=== PATIENT | male | born 1985 | race Caucasian/White ===

== ENCOUNTER 2018-05-13 18:07 | Emergency (ER) | payer BC ==
[2018-05-13] MEDS ORDERED: Ketorolac 60 MG/2 ML SDV IM ONE (18:25)
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
== END 2018-05-13 19:20 | disposition home or self-care (01) ==
LOC: MW.ED 18:07
DX: J10.1 Influenza due to other identified influenza virus with other respiratory manifestations (principal); Z87.891 Personal history of nicotine dependence
CPT/HCPCS: 87804; 96372; 99283; J1885